=== PATIENT | male | born 1990 | race Caucasian/White ===

== ENCOUNTER 2017-04-20 14:19 | Emergency (ER) | payer OTHER ==
[~2017-04-20] VITALS: Ht 182.9 cm; Wt 71.6 kg
[2017-04-20] MEDS ORDERED: CLAR1TAB13 PO (14:51)
[2017-04-20] MEDS ORDERED: ADACEL/BOOSTRIX VACCINE (DIPHTH/PERTUSS/ACELL/TETANUS)0.5ML SYR (90715) IM ONE (15:15)
[2017-04-20] MEDS ORDERED: LIDOCAINE 1% MDV 20ML VIAL IM ONE (15:15)
[2017-04-20 15:42] VITALS: BP 142/82
== END 2017-04-20 15:44 | disposition home or self-care (01) ==
LOC: M ED 14:19
DX: S61.215A Laceration without foreign body of left ring finger without damage to nail, initial encounter (principal); W26.0XXA Contact with knife, initial encounter; Y92.89 Other specified places as the place of occurrence of the external cause; Y93.89 Activity, other specified; Y99.0 Civilian activity done for income or pay

== ENCOUNTER → 2018-03-15 | Outpatient (CLI) | payer BC ==
[2018-03-15 12:12] LABS: BASO % 0.3 % (0.0-1.0); EOS # 0.1 10^3/uL (0.0-0.50); EOS % 1.4 % (0.0-3.0); HEMATOCRIT 42.4 % (42.0-52.0); HEMOGLOBIN 14.2 g/dl (13.5-17.5); IMMATURE GRANULOCYTE % 0.2 % (0-3.0); LYMPH # 2.1 10^3/uL (1.5-6.5); LYMPH % 23.6 % (24.0-44.0); MEAN CORPUSCULAR HEMOGLOBIN 28.9 pg (27.0-33.0); MEAN CORPUSCULAR HGB CONC 33.5 g/dl (32.0-36.5); MEAN CORPUSCULAR VOLUME 86.4 fl (80.0-96.0); MONO # 0.8 10^3/uL (0.0-0.8); MONO % 9.5 % (0.0-5.0); NEUTROPHILS # 5.6 10^3/uL (1.8-7.7); PLATELET COUNT, AUTOMATED 245 10^3/uL (150-450); RED BLOOD COUNT 4.91 10^6/uL (4.30-6.10); RED CELL DISTRIBUTION WIDTH 11.8 % (11.5-14.5); WHITE BLOOD COUNT 8.7 10^3/uL (4.0-10.0)
== END ==
LOC: M WUC 10:54
DX: L03.113 Cellulitis of right upper limb (principal)
CPT/HCPCS: 85025

== ENCOUNTER → 2020-10-26 | Outpatient (CLI) | payer SELFPAY ==
[~2020-10-26] MED LIST: CLAR1TAB13 PO
== END ==
LOC: M LABSMTC 13:07
PROVIDERS: ATTEND Pediatrics
DX: Z20.822 Contact with and (suspected) exposure to COVID-19 (principal)

== ENCOUNTER 2021-07-31 15:08 | Emergency (ER) | payer BC ==
[~2021-07-31] VITALS: Ht 182.9 cm; Wt 80.1 kg
[2021-07-31 15:09] VITALS: BP 138/85
--- OUTSIDE RECORDS SUMMARY | 2021-07-31 15:15 | CCD ---
Author Author [facility] Organization [facility] Address Unknown Phone Unavailable Support Name Relationship Address Phone MILKA AUTO SALES Next Of Kin [address] [place] [address] [place] Next Of Kin [address] [address] [place] [address] Unavailable TIMBO HO[place]TH Next Of Kin [address] [place] [address] UE Next Of Kin Unknown Unavailable EDELJanuary Next Of Kin [id number] [place] [address] Re-disclosure Warning The records that you are about to access may contain information from federally-assisted alcohol or drug abuse programs. If such information is present, then the following federally mandated warning applies: This information has been disclosed to you from records protected by federal confidentiality rules (42 CFR part 2). The federal rules prohibit you from making any further disclosure of this information unless further disclosure is expressly permitted by the written consent of the person to whom it pertains or as otherwise permitted by 42 CFR part 2. A general authorization for the release of medical or other information is NOT sufficient for this purpose. The Federal rules restrict any use of the information to criminally investigate or prosecute any alcohol or drug abuse patient.The records that you are about to access may contain highly sensitive health information, the redisclosure of which is protected by Article 27-F of the [place] State Public Health law. If you continue you may have access to information: Regarding HIV / AIDS; Provided by facilities licensed or operated by the [facility] Office of Mental Health; or Provided by the [facility] Office for People With Developmental Disabilities. If such information is present, then the following [facility] mandated warning applies: This information has been disclosed to you from confidential records which are protected by state law. State law prohibits you from making any further disclosure of this information without the specific written consent of the person to whom it pertains, or as otherwise permitted by law. Any unauthorized further disclosure in violation of state law may result in a fine or usp sentence or both. A general authorization for the release of medical or other information is NOT sufficient authorization for further disc losure. Family History Family Member Name Family Member Gender Family Member Status Date o f Status Description Data Source(s) Unknown Male Problem MEDENT ([facility]) Unknown Unknown Problem MEDENT ([facility]) Unknown Unknown Problem MEDENT ([facility] Medications No Information Insurance Providers Payer name Policy type / Coverage type Policy ID Covered democrat ID Covered democrat's relationship to serrano Policy [place] Information [place] [id number] Self [id number] SELF PAY ONLY [id number] SP [id number] BS Of [facility] Health Maintenance Organization (HM) [id number] Self [id number] [employer] Commercial [id number] Self [id number] [employer]BS [place] PPO 302/307 [id number] SP [id number] [employer] [facility] [place] [id number] FA2 [id number] CASSI RUBALCAVA [id number] SP [id number] [employer] [place] [id number] FA2 [id number] [employer] [place] [id number] FA2 [id number] [facility] Care Commercial [id number] Family Dependent PAMELA SNYDERJESSICA WORKER COMP [id number] SP [id number] PAMELA VALLECILLO WORKER COMP UNAVAILABLE SP UNAVAILABLE OTHER WORKERS COMPENSATI P [id number] S [id number] OTHER WORKERS COMPENSATION [id number] SP [id number] OTHER WORKERS COMPENSATION [id number] SP [id number] BCBS [place] [id number] SP [id number] AETNA [facility] [place] [id number] FA2 [id number] Problems, Conditions, and Diagnoses No Information Surgeries/Procedures No Information Results ID Date Data Source [id number] 10/26/2020 12:00:00 AM EST [facility] Name Value Range Interpretation Code Description Data Sheila rce(s) Supporting Document(s) SARS-CoV-2 (COVID-19) RNA [Presence] in Respiratory specimen by [facility] with probe detection Not Detected [facility] This lab was ordered by [facility] and reported by [facility] Procedure Social History No Information
--- OUTSIDE RECORDS SUMMARY | 2021-09-25 06:54 | CCD ---
Author Author [facility] Organization [facility] Address Unknown Phone Unavailable Support Name Relationship Address Phone MILKA [employer] SALES Next Of Kin [address] [place] [address] [place] Next Of Kin [address] [place] [address] [place] [address] Unavailable TIMBO HOLL[place]ORTH Next Of Kin [address] [place] [address] UE Next Of Kin Unknown Unavailable EDELJanuary Next Of Kin [id number] [place] [address] Re-disclosure Warning The records that you are [...] is protected by Article 27-F of the [place] State Public Health law. If you continue you may have access to information: Regarding HIV / AIDS; Provided by facilities licensed or operated by the [facility] Office of Mental Health; or Provided by the [facility] Office for People With Developmental Disabilities. If such information is present, then the following [facility] mandated warning applies: This information has been [...] law may result in a fine or assisted sentence or both. A general authorization for [...] type / Coverage type Policy ID Covered republican ID Covered republican's relationship to serrano Policy [place] Information [place] [id number] Self [id number] SELF PAY ONLY [id number] SP [id number] BS Of [facility] Health Maintenance Organization (HM) [id number] Self [id number] [employer] Commercial [id number] Self [id number] [employer] [place] PPO 302/307 [id number] SP [id number] [employer] [facility] [place] [id number] FA2 [id number] CASSI RUBALCAVA [id number] SP [id number] [employer] [facility] [place] [id number] FA2 [id number] [employer] [place] [id number] FA2 [id number] [facility] Care Commercial [id number] Family Dependent PAMELA SNYDERJESSICA WORKER COMP [id number] SP [id number] PAMELA VALLECILLO WORKER COMP UNAVAILABLE SP UNAVAILABLE OTHER WORKERS COMPENSATI P [id number] S [id number] OTHER WORKERS COMPENSATION [id number] SP [id number] OTHER WORKERS COMPENSATION [id number] SP [id number] BCBS [place] [id number] SP [id number] AETNA [facility] [place] [id number] FA2 [id number] Problems, Conditions, and Diagnoses No Information Surgeries/Procedures No Information Results ID Date Data Source [id number] 10/26/2020 12:00:00 AM EST [facility] Name Value Range Interpretation Code Description Data Sheila rce(s) Supporting Document(s) SARS-CoV-2 (COVID-19) RNA [Presence] in Respiratory specimen by KYMBERLY with probe detection Not Detected [facility] This lab was ordered by [facility] and reported by [facility] Procedure Social History No Information
== END 2021-07-31 23:00 | disposition left against medical advice (07) ==
LOC: M ED 15:08
DX: Z53.21 Procedure and treatment not carried out due to patient leaving prior to being seen by health care provider (principal)